=== PATIENT | male | born 1985 | race Caucasian/White ===

== ENCOUNTER 2022-12-17 10:14 | Emergency (ER) | payer SELFPAY ==
[2022-12-17] MEDS ORDERED: Lidocaine 1% (PF) 30 ML VIAL ONE (10:39)
[2022-12-17] MEDS ORDERED: Bacitracin 1 PK ONE (11:16)
== END 2022-12-17 11:20 | disposition home or self-care (01) ==
LOC: NAV ERS 10:14
DX: S61.411A Laceration without foreign body of right hand, initial encounter (principal); F17.210 Nicotine dependence, cigarettes, uncomplicated; W26.8XXA Contact with other sharp object(s), not elsewhere classified, initial encounter
CPT/HCPCS: 12001; J2001